=== PATIENT | male | born 1970 | race American Indian/Alaskan Native ===

== ENCOUNTER 2021-01-04 08:12 | Inpatient (IN) | payer OTHER ==
[~2021-01-04 08:12] MED LIST: CALCIUM CHLORIDE 1,000 MG/10 ML SYRINGE IV ONE; DEXTROSE 50% IN WATER (25GM) 50 ML SYRINGE IV ONE; EPINEPHrine 1 MG/10 ML SYRINGE ONE; ONDANSETRON 8 MG in SODIUM CHLORIDE 0.9% 50 ML IV NR; PANTOPRAZOLE 80 MG in SODIUM CHLORIDE 0.9% 100 ML IV NR; SODIUM BICARB 8.4% 50 MEQ/50 ML SYRINGE IV ONE
[2021-01-04] MEDS ORDERED: SODIUM CHLORIDE 0.9% 1000 ML 1,000 ML IV ONE ×2 (08:19→10:06)
[2021-01-04] MEDS ORDERED: OCTREOTIDE 500 MCG in SODIUM CHLORIDE 0.9% 100 ML IV ONE (08:21)
[2021-01-04] MEDS ORDERED: PANTOPRAZOLE 40 MG INJ IV ONE (08:21)
[2021-01-04] MEDS ORDERED: ONDANSETRON 4 MG/2 ML INJ IV ONE (08:22)
--- NOTE | 2021-01-04 08:26 | Emergency Department Report ---
ED GI Bleed HPI - General Stated complaint: GI BLEED Time Seen by Provider: 01/04/21 08:18 Source: patient, EMS Mode of arrival: Stretcher - History of Present Illness Initial comments: 50-year-old male with a past medical history of alcohol abuse and cryptogenic cirrhosis presents to the hospital with gross hematemesis. EMS was called by patient's who found him on the living room floor with a lot of bloody vomitus. Patient states he called out to her and did not fall. Patient was conscious upon EMS arrival. Patient has several episodes of vomiting blood in route to the hospital and upon arrival to the ED and was in and out of consciousness as per EMS. No signs of hypotension in route to the hospital. No previous medical record available for review. I greeted EMS at the door prior t o triage and initiated treatment orders. Patient presents with a 18-gauge IV. Requested second line placement. Patient states he started vomiting a little bit of blood yesterday which worsened today. He states he is not actively drinking alcohol and has a beer on occasion. states he drinks alcohol daily has history of alcohol withdrawal tremors. She is a RN PALLIATIVE CARE. he states he has not alcoholic liver cirrhosis. Denies previous history of GI bleed or recent melena. He is a [facility] patient. - Related Data Allergies Allergy/AdvReac Type Severity Reaction Status Date / Time Sulfa (Sulfonamide Allergy Unknown Verified 01/04/21 08:34 Antibiotics) ED Review of Systems ROS: Stated complaint: GI BLEED Other details as noted in HPI Comment: All other systems reviewed and negative ED Past Medical Hx - Past Medical History Hx Liver Disease: Yes (Cryptogenic cirrhosis) - Social History Substance Use Type: Alcohol (Alcoholic) ED Physical Exam - Other Other exam information: General: No acute distress Head: Atraumatic, no hematoma Eyes: Jaundice ENT: Blood in oral area Neck: Normal appearance, no midline tenderness Chest: Clear to auscultation bilaterally CV: Regular rate and rhythm Abdomen: Soft, normal bowel sounds, nontender, nondistended, no rebound or guarding. Reducible umbilical hernia. Actively vomiting blood intermittently while in the ED Back: Normal inspection Extremity: Right leg edema compared, right knee surgical scar Neuro: Alert O x 3, no facial asymmetry, speech clear, no gross motor sensory deficit Psych: Appropriate behavior Skin: No rash ED Course Vital Signs 09/01/04/21 01/04/21 08:30 08:34 08:45 Temperature 93.9 F L Pulse Rate 81 91 H 80 Respiratory 20 14 10 L Rate Blood Pressure 60/40 81/42 O2 Sat by Pulse 100 100 99 Oximetry 01/04/21 01/04/21 01/04/21 09:31 09:45 10:00 Temperature Pulse Rate 77 79 78 Respiratory 17 13 11 L Rate Blood Pressure 73/40 76/39 71/47 O2 Sat by Pulse 100 100 99 Oximetry 01/04/21 01/04/21 01/04/21 10:15 10:31 10:45 Temperature Pulse Rate 74 101 H 115 H Respiratory 10 L 14 13 Rate Blood Pressure 70/39 80/42 81/45 O2 Sat by Pulse 98 98 Oximetry 01/04/21 01/04/21 01/04/21 11:00 11:15 11:30 Temperature Pulse Rate 101 H 106 H 119 H Respiratory 12 13 18 Rate Blood Pressure 79/30 80/35 100/56 O2 Sat by Pulse 98 100 100 Oximetry 01/04/21 01/04/21 01/04/21 11:45 12:00 12:15 Temperature Pulse Rate 123 H 124 H 120 H Respiratory 19 20 13 Rate Blood Pressure 90/49 74/45 78/43 O2 Sat by Pulse 91 Oximetry 01/04/21 01/04/21 01/04/21 12:30 12:45 13:00 Temperature Pulse Rate 120 H 119 H 117 H Respiratory 14 15 11 L Rate Blood Pressure 79/47 81/46 98/56 O2 Sat by Pulse 100 Oximetry 01/04/21 01/04/21 01/04/21 13:10 13:15 13:27 Temperature Pulse Rate 119 H 121 H Respiratory 21 17 Rate Blood Pressure 82/53 81/45 O2 Sat by Pulse 100 100 100 Oximetry 01/04/21 01/04/21 01/04/21 13:30 13:45 14:00 Temperature Pulse Rate 123 H 117 H 117 H Respiratory 19 12 10 L Rate Blood Pressure 83/52 72/48 70/37 O2 Sat by Pulse Oximetry 01/04/21 01/04/21 01/04/21 14:04 14:15 14:30 Temperature 96.1 F L Pulse Rate 118 H 121 H Respiratory 9 L 12 Rate Blood Pressure 68/42 81/47 O2 Sat by Pulse 100 100 Oximetry 01/04/21 01/04/21 01/04/21 14:45 14:59 15:00 Temperature Pulse Rate 127 H 127 H Respiratory 11 L 12 Rate Blood Pressure 82/51 86/48 O2 Sat by Pulse 100 100 Oximetry 01/04/21 01/04/21 01/04/21 15:15 15:30 15:45 Temperature Pulse Rate 128 H 126 H 127 H Respiratory 13 11 L 13 Rate Blood Pressure 78/51 85/48 75/39 O2 Sat by Pulse 100 100 94 Oximetry 01/04/21 01/04/21 01/04/21 16:00 16:15 16:30 Temperature Pulse Rate 131 H 131 H 132 H Respiratory 11 L 14 17 Rate Blood Pressure 90/57 122/61 112/55 O2 Sat by Pulse 100 100 100 Oximetry 01/04/21 01/04/21 01/04/21 16:45 17:00 17:15 Temperature Pulse Rate 133 H 133 H 133 H Respiratory 13 11 L 11 L Rate Blood Pressure 90/53 106/51 99/50 O2 Sat by Pulse 100 100 100 Oximetry 01/04/21 01/04/21 01/04/21 17:30 17:45 18:00 Temperature 100.9 F H Pulse Rate 125 H 132 H 132 H Respiratory 11 L 9 L 10 L Rate Blood Pressure 77/40 82/44 78/39 O2 Sat by Pulse 87 100 96 Oximetry 01/04/21 01/04/21 01/04/21 18:15 18:30 18:45 Temperature Pulse Rate 132 H 132 H 129 H Respiratory 9 L 8 L 9 L Rate Blood Pressure 67/41 71/38 62/35 O2 Sat by Pulse 100 96 Oximetry 01/04/21 01/04/21 01/04/21 19:00 19:15 19:23 Temperature Pulse Rate 127 H 127 H Respiratory 9 L 9 L Rate Blood Pressure 64/37 63/37 O2 Sat by Pulse 98 100 98 Oximetry 01/04/21 01/04/21 01/04/21 19:30 19:45 20:00 Temperature Pulse Rate 126 H 125 H 125 H Respiratory 10 L 11 L 12 Rate Blood Pressure 63/33 76/35 79/35 O2 Sat by Pulse 100 92 100 Oximetry 01/04/21 01/04/21 01/04/21 20:15 20:30 20:45 Temperature Pulse Rate 123 H 122 H 110 H Respiratory 12 11 L 10 L Rate Blood Pressure 71/38 71/38 57/31 O2 Sat by Pulse 100 100 Oximetry 01/04/21 01/04/21 01/04/21 20:55 21:00 21:15 Temperature Pulse Rate 108 H 108 H 110 H Respiratory 9 L Rate Blood Pressure 55/27 59/21 60/30 O2 Sat by Pulse 98 100 99 Oximetry 01/04/21 01/04/21 01/04/21 21:30 21:45 22:00 Temperature Pulse Rate 110 H 110 H 110 H Respiratory 10 L 8 L 17 Rate Blood Pressure 56/29 57/39 50/19 O2 Sat by Pulse 100 98 94 Oximetry 01/04/21 01/04/21 01/04/21 22:15 22:22 22:23 Temperature 99.7 F H Pulse Rate 106 H 106 H Respiratory 7 L 12 Rate Blood Pressure 62/29 54/31 O2 Sat by Pulse Oximetry 01/04/21 01/04/21 01/04/21 22:30 22:45 23:00 Temperature Pulse Rate 106 H 103 H 102 H Respiratory 25 H 26 H 27 H Rate Blood Pressure 65/32 55/31 65/32 O2 Sat by Pulse 98 Oximetry 01/04/21 01/04/21 01/04/21 23:15 23:30 23:45 Temperature Pulse Rate 98 H 91 H 84 Respiratory 28 H 27 H 23 Rate Blood Pressure 67/28 57/28 54/25 O2 Sat by Pulse 97 98 98 Oximetry 01/05/21 01/05/21 01/05/21 00:00 00:15 00:30 Temperature Pulse Rate 84 83 85 Respiratory 13 21 16 Rate Blood Pressure 54/26 57/25 55/22 O2 Sat by Pulse 98 99 97 Oximetry 01/05/21 01/05/21 01/05/21 00:45 01:01 01:15 Temperature Pulse Rate 83 81 81 Respiratory 9 L 10 L 10 L Rate Blood Pressure 60/22 54/19 55/28 O2 Sat by Pulse 100 99 99 Oximetry 01/05/21 01:31 Temperature Pulse Rate 77 Respiratory 10 L Rate Blood Pressure 53/22 O2 Sat by Pulse 97 Oximetry - Reevaluation(s) Reevaluation #1: 01/04/21 08:29 Once patient placed in a blood pressure he is noted to be hypotensive with a systolic pressure in his 70s. Emergency release blood requested. NS bolus. phlebtomy at the bedside 01/04/21 09:17 I called lab for platelet count given history of significant thrombocytopenia. I was told by energy systems laboratory director that tentative platelet count is 71 however, must be verified to be a slide prior to release. Reevaluation #2: 01/04/21 09:32 at the bedside and clarified history of present illness. She and the christofer ent were informed of the severity of his presentation, need for blood and possible blood products, and need for emergent transfer due to lack of endoscopy services here at this hospital. There was informed that waiting to hear back from [facility] physician regarding ICU placement and transfer 01/04/21 09:37 Patient is currently alert and oriented. Remains hypotensive. Call placed to the respiratory therapist to prep room for intubation in case patient decompensates. Call placed to blood bank for stat fresh frozen plasma. pt hypothermic and active warmer initiated 01/04/21 12:34 Reevaluation #3: 01/04/21 10:58 . I was informed by nurse that patient is hypothermic. Lily warmer place. Patient actively vomiting blood and appears tremulous likely secondary to a lcohol withdrawal. Patient on 20 mics of dopamine and remains hypotensive despite aggressive resuscitation measures. Given continued instability and continue vomiting blood patient will be prepped for intubation and central line placement - Consultations Consultation #1: 01/04/21 08:41 Gi called for emergency consult. 01/04/21 09:05 case d/w DR Rodriguez, no endoscopy available, rec transfer 01/04/21 09:05 [facility] transfer service called 01/04/21 09:16 Case discussed with [facility] MD Dr. Holden. She reviewed medical record. Patient has chronic thrombocytopenia with platelet count often being too low to be reported. Based on September and July blood work. Last colonoscopy was in 2008. No history of EGD. In September patient was admitted for sepsis and bacteremia and needed to have right femur hardware removal. There was some discussion regarding palliative care however, patient does not currently have advanced directives on file. She recommended admission here due to instability however, she was informed t\hat we do not have endoscopy services. She states she will verify availability ICU beds and call back regarding acceptance of transfer 01/04/21 10:[address] Holden, informed of need for dopamine, plt 71 (but pending conformation), and coaagulopathy. Recommends initiated platelet. Awaiting callback from ICU attending to verify acceptance and space availability 01/04/21 11:[address] Holden patient current diagnosis is cryptogenic cirrhosis (apr 2017 initial diagnois after admission with septic arthritis, biposy consitant with non alcholic), September egd: no varices but positive for gastritis (performed during the admission for hardware removal). Unfortunately they do not have any ICU beds at any facility. If we can not find a bed call back to place pt on waiting list 01/04/21 11:43 11:30a nurse supervisor [facility] and Juliana aware of patient's emergent condition requiring emergent endoscopy and unavailability of endoscopy here. Will attempt to find a solution 01/04/21 11:50 case d/w DR Rodriguez, states that he currently lacks a nurse, tech and access to endoscopy. advices ngt, ct angio if stable further possible clarification of source of bleeding 01/04/21 `11:[address] Holden that Pt does not have hx of liver cancer. no active liver treatment currently 01/04/21 12:12 Case discussed with [facility]. No bed available 01/04/21 12:15 No beds at [facility] 01/04/21 12:18 I was informed by charge operator that child that has arranged for team to come in to perform emergent endoscopy. Dr. Rodriguez informed. Hospitalist informed for admission 01/04/21 13:43 01/04/21 14:[address] [facility] Dr. Holden informed improved H&H, endoscopy results and banding procedure, and that patient is now on 3 pressors with and remains critical with ABG showing metabolic acidosis. She will continue to have patient on the list for ICU bed transfer to [facility] - Central Line Placement Right Femoral Consent Obtained: verbal consent, emergent situation Time Out Performed: Yes Patient Placed on Monitor/Pulse Ox: Yes MD Prep: mask, gown, gloves Central Line Prep: Chlorhexidine scrub Ultrasound Used for Placement: No Central Line Lumen Inserted: triple Reason for Insertion: Volume Resuscitation Bloods Obtained for Lab: No Central Line Position: good blood return, sutured in place with nyl Dressing Applied: Tegaderm Patient Tolerated Procedure: well Complications: none - Intubation Time Out Performed: Yes Sedative: Etomidate Mg Given: 20 Paralytic: Succinylcholine Mg Given: 100 Laryngoscope: fiberoptic video scope Size: 4 ET Tube Size: 7.5 Tube Secured Depth (cm): 24 Tube Secured Location: lips Tube Placement Confirmation: visualized tube passing t, equal breath sounds bilat, no breath sounds over epi, confirmation by capnometr Patient Tolerated Procedure: well Intubation Complications: none ED Medical Decision Making - Lab Data Result diagrams: 01/05/21 02:17 01/05/21 02:17 Lab Results 01/04/21 01/04/21 01/04/21 Range/Units 08:55 08:55 08:55 WBC 4.6 (4.5-11.0) K/mm3 RBC 2.15 L (3.65-5.03) M/mm3 Hgb 8.4 L (11.8-15.2) gm/dl Hct 24.3 L (35.5-45.6) % MCV 113 H (84-94) fl MCH 39 H (28-32) pg MCHC 35 H (32-34) % RDW 24.9 H (13.2-15.2) % Plt Count 71 L (140-440) K/mm3 [place] % (Auto) Payroll And Benefits Assistant Add Manual Diff Complete Total Counted 100 Seg Neuts % (Manual) 76.0 H (40.0-70.0) % Band Neutrophils % 1.0 % Lymphocytes % (Manual) 22.0 (13.4-35.0) % Monocytes % (Manual) 1.0 (0.0-7.3) % Nucleated RBC % Not Reportable Seg Neutrophils # Man 3.5 (1.8-7.7) K/mm3 Band Neutrophils # 0.0 K/mm3 Lymphocytes # (Manual) 1.0 L (1.2-5.4) K/mm3 Abs React Lymphs (Man) 0.0 K/mm3 Monocytes # (Manual) 0.0 (0.0-0.8) K/mm3 Eosinophils # (Manual) 0.0 (0.0-0.4) K/mm3 Basophils # (Manual) 0.0 (0.0-0.1) K/mm3 Metamyelocytes # 0.0 K/mm3 Myelocytes # 0.0 K/mm3 Promyelocytes # 0.0 K/mm3 Blast Cells # 0.0 K/mm3 WBC Morphology Not Reportable Hypersegmented Neuts Not Reportable Hyposegmented Neuts Not Reportable Hypogranular Neuts Not Reportable Smudge Cells Not Reportable Toxic Granulation Not Reportable Toxic Vacuolation Not Reportable Dohle Bodies Not Reportable Pelger-Huet Anomaly Not Reportable Aneesh Rods Not Reportable Platelet Estimate Consistent w auto Clumped Platelets Not Reportable Plt Clumps, EDTA Not Reportable Large Platelets Not Reportable Giant Platelets Not Reportable Platelet Satelliting Not Reportable Plt Morphology Comment Not Reportable RBC Morphology Not Reportable Dimorphic RBCs Not Reportable Polychromasia Not Reportable Hypochromasia 1+ Poikilocytosis Not Reportable Anisocytosis 2+ Microcytosis Not Reportable Macrocytosis 1+ Spherocytes Not Reportable Pappenheimer Bodies Not Reportable Sickle Cells Not Reportable Target Cells Few Tear Drop Cells Not Reportable Ovalocytes Not Reportable Helmet Cells Not Reportable [place] Bodies Not Reportable Thomas Rings Not Reportable [place] Cells Not Reportable Bite Cells Not Reportable Crenated Cell Not Reportable Elliptocytes Not Reportable Acanthocytes (Spur) Not Reportable Rouleaux Not Reportable Hemoglobin C Crystals Not Reportable Schistocytes Not Reportable Malaria parasites Not Reportable Jerrod Bodies Not Reportable Hem Pathologist Commnt No PT 33.7 H (12.2-14.9) Sec. INR 3.31 H (0.87-1.13) APTT 62.1 H* (24.2-36.6) Sec. ABG pH (7.350-7.450) pH Units ABG pCO2 mm Hg ABG pO2 (80.0-90.0) mm Hg ABG HCO3 (20.0-26.0) mmol/L ABG O2 Saturation (95.0-99.0) % ABG O2 Content (0.0-44) ABG Base Excess (-2.0-3.0) mmol/L ABG Hemoglobin (14.0-18.0) gm/dl ABG Carboxyhemoglobin (0.0-5.0) % ABG Methemoglobin (0.0-1.5) % Oxyhemoglobin (95.0-99.0) % FiO2 % Sodium 134 L (137-145) mmol/L Potassium 3.4 L (3.6-5.0) mmol/L Chloride 97.7 L (98-107) mmol/L Carbon Dioxide 21 L (22-30) mmol/L Anion Gap 19 mmol/L BUN 20 (9-20) mg/dL Creatinine 1.2 (0.8-1.3) mg/dL Estimated GFR > 60 ml/min BUN/Creatinine Ratio 17 % Glucose 140 H (75-100) mg/dL Calcium 7.6 L (8.4-10.2) mg/dL Magnesium 2.10 (1.7-2.3) mg/dL Total Bilirubin 25.10 H (0.1-1.2) mg/dL AST 191 H (5-40) units/L ALT 37 (7-56) units/L Alkaline Phosphatase 175 H (35-129) units/L Total Protein 5.5 L (6.3-8.2) g/dL Albumin 1.9 L (3.9-5) g/dL Albumin/Globulin Ratio 0.5 % Lipase (13-60) units/L Plasma/Serum Alcohol (0-0.07) % Blood Type Antibody Screen Crossmatch 01/04/21 01/04/21 01/04/21 Range/Units 08:55 08:55 08:55 WBC (4.5-11.0) K/mm3 RBC (3.65-5.03) M/mm3 Hgb (11.8-15.2) gm/dl Hct (35.5-45.6) % MCV (84-94) fl MCH (28-32) pg MCHC (32-34) % RDW (13.2-15.2) % Plt Count (140-440) K/mm3 [place] % (Auto) Add Manual Diff Total Counted Seg Neuts % (Manual) (40.0-70.0) % Band Neutrophils % % Lymphocytes % (Manual) (13.4-35.0) % Monocytes % (Manual) (0.0-7.3) % Nucleated RBC % Seg Neutrophils # Man (1.8-7.7) K/mm3 Band Neutrophils # K/mm3 Lymphocytes # (Manual) (1.2-5.4) K/mm3 Abs React Lymphs (Man) K/mm3 Monocytes # (Manual) (0.0-0.8) K/mm3 Eosinophils # (Manual) (0.0-0.4) K/mm3 Basophils # (Manual) (0.0-0.1) K/mm3 Metamyelocytes # K/mm3 Myelocytes # K/mm3 Promyelocytes # K/mm3 Blast Cells # K/mm3 WBC Morphology Hypersegmented Neuts Hyposegmented Neuts Hypogranular Neuts Smudge Cells Toxic Granulation Toxic Vacuolation Dohle Bodies Pelger-Huet Anomaly Aneesh Rods Platelet Estimate Clumped Platelets Plt Clumps, EDTA Large Platelets Giant Platelets Platelet Satelliting Plt Morphology Comment RBC Morphology Dimorphic RBCs Polychromasia Hypochromasia Poikilocytosis Anisocytosis Microcytosis Macrocytosis Spherocytes Pappenheimer Bodies Sickle Cells Target Cells Tear Drop Cells Ovalocytes Helmet Cells [place] Bodies Thomas Rings [place] Cells Bite Cells Crenated Cell Elliptocytes Acanthocytes (Spur) Rouleaux Hemoglobin C Crystals Schistocytes Malaria parasites Jerord Bodies Hem Pathologist Commnt PT (12.2-14.9) Sec. INR (0.87-1.13) APTT (24.2-36.6) Sec. ABG pH (7.350-7.450) pH Units ABG pCO2 mm Hg ABG pO2 (80.0-90.0) mm Hg ABG HCO3 (20.0-26.0) mmol/L ABG O2 Saturation (95.0-99.0) % ABG O2 Content (0.0-44) ABG Base Excess (-2.0-3.0) mmol/L ABG Hemoglobin (14.0-18.0) gm/dl ABG Carboxyhemoglobin (0.0-5.0) % ABG Methemoglobin (0.0-1.5) % Oxyhemoglobin (95.0-99.0) % FiO2 % Sodium (137-145) mmol/L Potassium (3.6-5.0) mmol/L Chloride (98-107) mmol/L Carbon Dioxide (22-30) mmol/L Anion Gap mmol/L BUN (9-20) mg/dL Creatinine (0.8-1.3) mg/dL Estimated GFR ml/min BUN/Creatinine Ratio % Glucose (75-100) mg/dL Calcium (8.4-10.2) mg/dL Magnesium (1.7-2.3) mg/dL Total Bilirubin (0.1-1.2) mg/dL AST (5-40) units/L ALT (7-56) units/L Alkaline Phosphatase (35-129) units/L Total Protein (6.3-8.2) g/dL Albumin (3.9-5) g/dL Albumin/Globulin Ratio % Lipase 61 H (13-60) units/L Plasma/Serum Alcohol 0.13 H (0-0.07) % Blood Type A POSITIVE Antibody Screen Negative Crossmatch See Detail 01/04/21 01/04/21 Range/Units 12:44 13:22 WBC (4.5-11.0) K/mm3 RBC (3.65-5.03) M/mm3 Hgb 9.6 L (11.8-15.2) gm/dl Hct 30.2 L (35.5-45.6) % MCV (84-94) fl MCH (28-32) pg MCHC (32-34) % RDW (13.2-15.2) % Plt Count (140-440) K/mm3 [place] % (Auto) Add Manual Diff Total Counted Seg Neuts % (Manual) (40.0-70.0) % Band Neutrophils % % Lymphocytes % (Manual) (13.4-35.0) % Monocytes % (Manual) (0.0-7.3) % Nucleated RBC % Seg Neutrophils # Man (1.8-7.7) K/mm3 Band Neutrophils # K/mm3 Lymphocytes # (Manual) (1.2-5.4) K/mm3 Abs React Lymphs (Man) K/mm3 Monocytes # (Manual) (0.0-0.8) K/mm3 Eosinophils # (Manual) (0.0-0.4) K/mm3 Basophils # (Manual) (0.0-0.1) K/mm3 Metamyelocytes # K/mm3 Myelocytes # K/mm3 Promyelocytes # K/mm3 Blast Cells # K/mm3 WBC Morphology Hypersegmented Neuts Hyposegmented Neuts Hypogranular Neuts Smudge Cells Toxic Granulation Toxic Vacuolation Dohle Bodies Pelger-Huet Anomaly Aneesh Rods Platelet Estimate Clumped Platelets Plt Clumps, EDTA Large Platelets Giant Platelets Platelet Satelliting Plt Morphology Comment RBC Morphology Dimorphic RBCs Polychromasia Hypochromasia Poikilocytosis Anisocytosis Microcytosis Macrocytosis Spherocytes Pappenheimer Bodies Sickle Cells Target Cells Tear Drop Cells Ovalocytes Helmet Cells [place] Bodies Thomas Rings [place] Cells Bite Cells Crenated Cell Elliptocytes Acanthocytes (Spur) Rouleaux Hemoglobin C Crystals Schistocytes Malaria parasites Jerrod Bodies Hem Pathologist Commnt PT (12.2-14.9) Sec. INR (0.87-1.13) APTT (24.2-36.6) Sec. ABG pH 7.218 L (7.350-7.450) pH Units ABG pCO2 29.0 mm Hg ABG pO2 256.5 H (80.0-90.0) mm Hg ABG HCO3 11.6 L (20.0-26.0) mmol/L ABG O2 Saturation 99.4 H (95.0-99.0) % ABG O2 Content 9.6 (0.0-44) ABG Base Excess -14.8 L (-2.0-3.0) mmol/L ABG Hemoglobin 6.5 L (14.0-18.0) gm/dl ABG Carboxyhemoglobin 2.2 (0.0-5.0) % ABG Methemoglobin 0.5 (0.0-1.5) % Oxyhemoglobin 96.7 (95.0-99.0) % FiO2 60 % Sodium (137-145) mmol/L Potassium (3.6-5.0) mmol/L Chloride (98-107) mmol/L Carbon Dioxide (22-30) mmol/L Anion Gap mmol/L BUN (9-20) mg/dL Creatinine (0.8-1.3) mg/dL Estimated GFR ml/min BUN/Creatinine Ratio % Glucose (75-100) mg/dL Calcium (8.4-10.2) mg/dL Magnesium (1.7-2.3) mg/dL Total Bilirubin (0.1-1.2) mg/dL AST (5-40) units/L ALT (7-56) units/L Alkaline Phosphatase (35-129) units/L Total Protein (6.3-8.2) g/dL Albumin (3.9-5) g/dL Albumin/Globulin Ratio % Lipase (13-60) units/L Plasma/Serum Alcohol (0-0.07) % Blood Type Antibody Screen Crossmatch - EKG Data -: EKG Interpreted by [place] EKG shows normal: sinus rhythm, intervals (QTC 525), ST-T waves (No STEMI) Rate: normal (86) - Radiology Data Radiology results: report reviewed CHEST 1 VIEW INDICATION: vomiting blood. COMPARISON: None FINDINGS: SUPPORT DEVICES: None. HEART: Within normal limits. LUNGS/PLEURA: No acute air space or interstitial disease. ADDITIONAL FINDINGS: None. IMPRESSION: 1. No acute findings. CHEST 1 VIEW INDICATION: ETT placement. COMPARISON: Earlier today FINDINGS: SUPPORT DEVICES: Endotracheal tube placement with tip along the inferior clavicle margin. HEART: Within normal limits. LUNGS/PLEURA: Minimal hazy right greater than left basilar airspace opacities. No effusion or pneumothorax. ADDITIONAL FINDINGS: None. IMPRESSION: 1. Endotracheal tube placement in satisfactory position. 2. Lung findings as above. - Medical Decision Making 50-year-old alcoholic male with a past medical history of cryptogenic cirrhosis presents to the hospital with complaints of acute upper GI bleed. Patient required immediate resuscitation upon arrival with normal saline and emergency release of blood. Despite receiving 3 L of normal saline and 2 units of blood patient may significantly hypertensive and hypothermic with continued vomiting of blood. Patient treated with Protonix drip and bolus, and octreotide drip and bolus. Vasopressors initiated. Active warming initially. Patient maxed out on dopamine. Levophed initiated. Patient intubated for airway protection and also for stability and central line placed. Unfortunately there were no available beds at [facility] therefore an emergent staff was called in to perform endoscopy at the bedside for endoscopy revealed esophageal varices with active bleeding. 4 bands placed as per GI note. Hospitalist to admit. Critical care attending consulted. intermittently at the bedside. Patient has a very poor prognosis and required a third vasopressor shortly after intubation. Damion FORREST updated regarding status and patient placed on list for transfer when bed available. Patient required extensive monitoring, reassessment, consultations, and treatment interventions during ED stay 75 minutes of critical care time documented. Critical Care Time: Yes Critical care time in (mins) excluding proc time.: 75 Critical care attestation.: If time is entered above; I have spent that time in minutes in the direct care of this critically ill patient, excluding procedure time. ED Disposition Clinical Impression: Upper GI bleed, Hypotension, Anemia, Thrombocytopenia, Coagulopathy, Alcohol abuse, Hypothermia Esophageal varices Qualifiers: Esophageal varices bleeding: with bleeding Disposition: 09 ADMITTED INPATIENT Is pt being admited?: Yes Condition: Critical
[2021-01-04] MEDS ORDERED: OCTREOTIDE 50 MCG/1 ML INJ IV ONE (08:30)
[2021-01-04] MEDS ORDERED: PANTOPRAZOLE 80 MG in SODIUM CHLORIDE 0.9% 100 ML IV SCH (09:00)
[2021-01-04 09:02] LABS: Hematocrit 24.3 % (35.5-45.6); Hemoglobin 8.4 gm/dl (11.8-15.2); Mean Corpuscular HGB Conc 35 % (32-34); Red Blood Count 2.15 M/mm3 (3.65-5.03)
[2021-01-04 09:09] LABS: Mean Corpuscular Volume 113 fl (84-94); Red Cell Distribution Width 24.9 % (13.2-15.2)
[2021-01-04 09:17] LABS: Alanine Aminotransferase 37 units/L (7-56); Albumin 1.9 g/dL (3.9-5); BUN/Creatinine Ratio 17; Blood Urea Nitrogen 20 mg/dL (9-20); Calcium 7.6 mg/dL (8.4-10.2); Hemolysis Index 29; INR 3.31 (0.87-1.13)
--- NOTE | 2021-01-04 09:26 | XRay Report ---
CHEST 1 VIEW INDICATION: vomiting blood. COMPARISON: None FINDINGS: SUPPORT DEVICES: None. HEART: Within normal limits. LUNGS/PLEURA: No acute air space or interstitial disease. ADDITIONAL FINDINGS: None. IMPRESSION: 1. No acute findings. Signer Name: Flako Mansfield MD Signed: 01/04/2021 9:21 AM Workstation Name: [id number]
[2021-01-04] MEDS ORDERED: SODIUM CHLORIDE 0.9% 500 ML 500 ML IV ONE ×2 (09:34→10:20)
[2021-01-04 10:31] LABS: Partial Thromboplastin Time 62.1 Sec. (24.2-36.6)
[2021-01-04] MEDS: DOPamine/D5W 800 MG/250 ML 800 MG/250 ML BAG IV ONE (11:00)
[2021-01-04] MEDS ORDERED: KETAMINE 500 MG/5 ML VIAL MDV ONE (11:15)
[2021-01-04] MEDS ORDERED: MIDAZOLAM 2 MG/2 ML INJ IV PRN (11:49)
[2021-01-04] MEDS ORDERED: LIP THERAPY VASELINE TP PRN (11:49)
[2021-01-04] MEDS ORDERED: MINERAL OIL/PETROLATUM, WHITE OPHTH OINT 3.5 GM OU PRN (11:49)
[2021-01-04] MEDS ORDERED: fentaNYL 100 MCG/2 ML INJ IV PRN (11:49)
[2021-01-04] MEDS ORDERED: MIDAZOLAM 100 MG in SODIUM CHLORIDE 0.9% 80 ML IV SCH (12:00)
[2021-01-04] MEDS ORDERED: fentaNYL DRIP Premix 2,000 MCG/100 ML BAG IV SCH (12:00)
[2021-01-04 12:10] LABS: Hypochromasia 1+; Platelet Estimate Consistent w Auto; Target Cells Few; Total Cells Counted 100
[2021-01-04 12:11] LABS: Anisocytosis 2+; Macrocytosis 1+
[2021-01-04 12:16] LABS: Platelet Count 71 K/mm3 (140-440)
--- NOTE | 2021-01-04 12:31 | XRay Report ---
CHEST 1 VIEW INDICATION: ETT placement. COMPARISON: Earlier today FINDINGS: SUPPORT DEVICES: Endotracheal tube placement with tip along the inferior clavicle margin. HEART: Within normal limits. LUNGS/PLEURA: Minimal hazy right greater than left basilar airspace opacities. No effusion or pneumot horax. ADDITIONAL FINDINGS: None. IMPRESSION: 1. Endotracheal tube placement in satisfactory position. 2. Lung findings as above. Signer Name: Flako Mansfield MD Signed: 01/04/2021 12:27 PM Workstation Name: [id number]
--- NOTE | 2021-01-04 12:34 | History and Physical Report ---
History of Present Illness Chief complaint: He is throwing up blood History of present illness: 50 YO Male with ETOH Dependence, Cirrhosis complicated by Esophageal Varices, ETOH Withdrawl Syndrome who is not a candidate for liver transplant due to continued alcohol dependence presents ED for evaluation. Patient is intubated and on ventilatory support at the time my evaluation and is unable to provide history. Patient history provided by EMS staff, ED staff, as well as the patient who is at bedside during exam and interview. As per the patient was found down and unresponsive in the living room and lying in a pool of bloody vomitus. EMS was notified and upon arrival the patient was found to be in and out of consciousness and was subsequent transported to [facility] for further care and evaluation of the aforementioned symptoms. In route to the hospital the patient was found to have multiple episodes of hematemesis. Upon arrival to the emergency department the patient was found to be in distress and unable to protect his airway. The patient was also intoxicated. The patient was intubated due to acute hypoxemic respiratory failure. The patient was also found to have septic shock complicated by GI bleed and blood loss anemia. The patient was initiated on sepsis protocol and admitted to ICU due to increased risk of worsening symptoms. Patient found to have a poor prognosis. GI team consulted in the ED and the patient underwent emergent endoscopy and initiated on GI Bleed protocol. Critical care team consulted. No reports of fever, chills, chest pain, palpitation, adductive cough, skin rash, recent ill contacts, or known exposure to COVID-19. No prior admission for review. No m edication listed at time of admission for reconciliation. Advanced care planning conducted in ED. Past History Past Medical History: other (See HPI) Past Surgical History: No surgical history, Other (Reviewed) Social history: , lives with family Medications and Allergies Allergies Allergy/AdvReac Type Severity Reaction Status Date / Time Sulfa (Sulfonamide Allergy Unknown Verified 01/04/21 08:34 Antibiotics) Active Meds: Active Medications Famotidine (Famotidine 20 Mg/2 Ml Inj) 20 mg IV BID CORTNEY Fentanyl (Fentanyl 100 Mcg/2 Ml Inj) 50 mcg IV Q10MIN PRN PRN Reason: ANALGESIA Hydrophilic Ointment (Lip Therapy Vaseline) 1 applic TP Q2HR PRN PRN Reason: Dry Lips Pantoprazole Sodium 80 mg/ (Sodium Chloride) 100 mls @ 10 mls/hr IV DIRECT CORTNEY Octreotide Acetate 500 mcg/ (Sodium Chloride) 101 mls @ 5.05 mls/hr IV TITR ONE; Protocol Stop: 01/05/21 04:20 Last Admin: 01/04/21 09:50 Dose: 25 mcg/hr, 5.05 mls/hr Documented by: Dopamine HCl/Dextrose (Intropin Drip 800 Mg/D5w 250 Ml) 800 mg in 250 mls @ 3.487 mls/hr IV TITR ONE; Protocol Stop: 01/07/21 09:47 Fentanyl Citrate (Fentanyl Drip Premix) 2,000 mcg in 100 mls @ 4.649 mls/hr IV TITR CORTNEY; Protocol Midazolam HCl 100 mg/ Sodium (Chloride) 100 mls @ 2 mls/hr IV TITR CORTNEY; Protocol Midazolam HCl (Midazolam 2 Mg/2 Ml Inj) 2 mg IV Q10MIN PRN PRN Reason: Sedation Multi-Ingred Cream/Lotion/Oil/Oint (Mineral Oil/Petrolatum, White Ophth Oint 3.5 Gm) 1 applic OU Q4HR PRN PRN Reason: Dry Eye(s) Senna/Docusate Sodium (Sennosides/Docusate Sodium 8.6/50 Mg Tab) 1 tab FEEDTUBE BID CORTNEY Review of Systems ROS unobtainable: due to endotracheal tube, due to mental status Exam - Constitutional Vitals: Temp Pulse Resp BP Pulse Ox 79 13 76/39 100 01/04/21 09:45 01/04/21 09:45 01/04/21 09:45 01/04/21 11:30 General appearance: Present: severe distress - EENT Eyes: Present: miosis ENT: hearing decreased - Neck Neck: Present: supple, normal ROM - Respiratory Respiratory effort: normal Respiratory: bilateral: diminished - Cardiovascular Heart Sounds: Present: S1 & S2. Absent: rub, click - Extremities Extremities: pulses symmetrical, No edema Peripheral Pulses: within normal limits - Abdominal General gastrointestinal: Present: soft, non-tender, non-distended, normal bowel sounds Male genitourinary: Present: normal - Integumentary Integumentary: Present: dry, clammy, decreased turgor - Musculoskeletal Musculoskeletal: generalized weakness - Psychiatric Psychiatric: no appropriate mood/affect, no intact judgment & insight, no memory intact - Neurologic Neurologic: CNII-XII intact, no focal deficits, moves all extremities, no gait normal Results - Labs CBC & Chem 7: 01/04/21 12:44 01/04/21 08:55 Labs: Abnormal lab results 01/04/21 01/04/21 01/04/21 Range/Units 08:55 08:55 08:55 RBC 2.15 L (3.65-5.03) M/mm3 Hgb 8.4 L (11.8-15.2) gm/dl Hct 24.3 L (35.5-45.6) % MCV 113 H (84-94) fl MCH 39 H (28-32) pg MCHC 35 H (32-34) % RDW 24.9 H (13.2-15.2) % Plt Count 71 L (140-440) K/mm3 Seg Neuts % (Manual) 76.0 H (40.0-70.0) % Lymphocytes # (Manual) 1.0 L (1.2-5.4) K/mm3 PT 33.7 H (12.2-14.9) Sec. INR 3.31 H (0.87-1.13) APTT 62.1 H* (24.2-36.6) Sec. Sodium 134 L (137-145) mmol/L Potassium 3.4 L (3.6-5.0) mmol/L Chloride 97.7 L (98-107) mmol/L Carbon Dioxide 21 L (22-30) mmol/L Glucose 140 H (75-100) mg/dL Calcium 7.6 L (8.4-10.2) mg/dL Total Bilirubin 25.10 H (0.1-1.2) mg/dL AST 191 H (5-40) units/L Alkaline Phosphatase 175 H (35-129) units/L Total Protein 5.5 L (6.3-8.2) g/dL Albumin 1.9 L (3.9-5) g/dL Lipase (13-60) units/L Plasma/Serum Alcohol (0-0.07) % Crossmatch 01/04/21 01/04/21 01/04/21 Range/Units 08:55 08:55 08:55 RBC (3.65-5.03) M/mm3 Hgb (11.8-15.2) gm/dl Hct (35.5-45.6) % MCV (84-94) fl MCH (28-32) pg MCHC (32-34) % RDW (13.2-15.2) % Plt Count (140-440) K/mm3 Seg Neuts % (Manual) (40.0-70.0) % Lymphocytes # (Manual) (1.2-5.4) K/mm3 PT (12.2-14.9) Sec. INR (0.87-1.13) APTT (24.2-36.6) Sec. Sodium (137-145) mmol/L Potassium (3.6-5.0) mmol/L Chloride (98-107) mmol/L Carbon Dioxide (22-30) mmol/L Glucose (75-100) mg/dL Calcium (8.4-10.2) mg/dL Total Bilirubin (0.1-1.2) mg/dL AST (5-40) units/L Alkaline Phosphatase (35-129) units/L Total Protein (6.3-8.2) g/dL Albumin (3.9-5) g/dL Lipase 61 H (13-60) units/L Plasma/Serum Alcohol 0.13 H (0-0.07) % Crossmatch See Detail Assessment and Plan - Patient Problems (1) Septic shock Current Visit: Yes Status: Acute Plan to address problem: Sepsis protocol: CBC, CMP, chest x-ray, IV antibiotic therapy, IV fluid resuscitation therapy, monitor urine output every shift, IV pressor support, maintain mean arterial pressure greater than or equal to 65, monitor fluid balance, serial lactic acid level, The high probability of a clinically significant, sudden or life threatening det erioration of the [cardiac, renal, pulmonary, hematologic, GI] system(s) required my full and direct attention, intervention and personal management. The aggregate critical care time was [95] minutes. This time is in addition to time spent performing reported procedures but includes the following: [x] Data Review and interpretation [x] Patient assessment and monitoring of vital signs [x] Documentation [x] Medication orders and management (2) Upper GI bleed Current Visit: Yes Status: Acute Plan to address problem: GI team consulted, patient transfused packed red blood cells, FFP, patient in itiated on octreotide drip. Patient underwent emergent endoscopy as per GI team. (3) Acute hypoxemic respiratory failure Current Visit: Yes Status: Acute Plan to address problem: Patient intubated and ambulatory support, wean vent as tolerated, spontaneous breathing trial daily, sedation holiday, daily ABG. (4) Alcohol dependence Current Visit: Yes Status: Acute Plan to address problem: [facility] protocol: Thiamine, folic acid, multivitamin, banana bag. (5) Alcoholic cirrhosis Current Visit: Yes Status: Acute Qualifiers: Ascites presence: unspecified Qualified Code(s): K70.30 - Alcoholic cirrhosis of liver without ascites Plan to address problem: Supportive care, continue medical management. Alcohol cessation. (6) Advance care planning Current Visit: Yes Status: Acute Plan to address problem: Disease education conducted, care plan discussed, diagnosis discussed, prognosis discussed, patient is informed of poor prognosis. Patient and ac knowledges understanding and agreement with current care plan, +30 minutes. (7) Coagulopathy Current Visit: Yes Status: Acute Plan to address problem: Secondary to end-stage liver disease: Patient transfused FFP as well as platelets, coagulation profile (8) DVT prophylaxis Current Visit: Yes Status: Acute Plan to address problem: SCD to bilateral lower extremities while in bed, hold anticoagulation for now due to active GI bleed.
[2021-01-04] MEDS ORDERED: cefTRIAXone/NS 1 GM/50 ML 1 GM/50 ML BAG IV ONE (12:35)
[2021-01-04] MEDS ORDERED: HYDROmorphone 1 MG/1 ML INJ IV PRN ×2 (12:39)
[2021-01-04] MEDS ORDERED: ACETAMINOPHEN 325 MG TAB PO PRN (12:39)
[2021-01-04] MEDS ORDERED: MORPHINE 2 MG/1 ML INJ IV PRN (12:39)
[2021-01-04] MEDS ORDERED: SODIUM CHLORIDE 0.9% 1000 ML IV SOLN IV ONE (12:39)
[2021-01-04] MEDS ORDERED: IBUPROFEN 600 MG TAB PO PRN (12:39)
--- NOTE | 2021-01-04 12:54 | Gastroenterology Consultation ---
History of Present Illness - Reason for Consult Consult date: 01/04/21 GI Bleed Requesting physician: KIMBERLY MOULTON - History of Present Illness The patient is a 50 yo male with no past medical hx at [facility]. He is intubated on pressors/sedatives. Hx is per the chart and conversation with ER staff. He is a [facility] [facility] patient and Dr Infante (ER) has talked to the [place] MDs. He has a hx of "cryptogenic cirrhosis" but per the , he consumes large amount of EtOH every day. His blood EtOH level here is 0.13. He presented to the ER via EMS after vomiting blood at home; multiple bloody emesis occurred in the ER, and he was intubated for decreased mentation and airway support. He has labs consistent with cirrhosis, but his baseline is unknown. Past History Past Medical History: liver disease Past Surgical History: total knee replacement (Hardware removed 2020 2nd infection per Damion FORREST) Social history: alcohol abuse Family history: other (Unknown) Medications and Allergies Allergies Allergy/AdvReac Type Severity Reaction Status Date / Time Sulfa (Sulfonamide Allergy Unknown Verified 01/04/21 08:34 Antibiotics) Active Meds: Active Medications Acetaminophen (Acetaminophen 325 Mg Tab) 650 mg PO Q6H PRN PRN Reason: Pain, Mild (1-3) Famotidine (Famotidine 20 Mg/2 Ml Inj) 20 mg IV BID CORTNEY Fentanyl (Fentanyl 100 Mcg/2 Ml Inj) 50 mcg IV Q10MIN PRN PRN Reason: ANALGESIA Hydromorphone HCl (Hydromorphone 1 Mg/1 Ml Inj) 0.25 mg IV Q4H PRN PRN Reason: Pain, Moderate (4-6) Hydromorphone HCl (Hydromorphone 1 Mg/1 Ml Inj) 0.5 mg IV Q24H PRN PRN Reason: Pain , Severe (7-10) Hydrophilic Ointment (Lip Therapy Vaseline) 1 applic TP Q2HR PRN PRN Reason: Dry Lips Pantoprazole Sodium 80 mg/ (Sodium Chloride) 100 mls @ 10 mls/hr IV DIRECT CORTNEY Octreotide Acetate 500 mcg/ (Sodium Chloride) 101 mls @ 5.05 mls/hr IV TITR ONE; Protocol Stop: 01/05/21 04:20 Last Admin: 01/04/21 09:50 Dose: 25 mcg/hr, 5.05 mls/hr Documented by: Dopamine HCl/Dextrose (Intropin Drip 800 Mg/D5w 250 Ml) 800 mg in 250 mls @ 3.487 mls/hr IV TITR ONE; Protocol Stop: 01/07/21 09:47 Fentanyl Citrate (Fentanyl Drip Premix) 2,000 mcg in 100 mls @ 4.649 mls/hr IV TITR CORTNEY; Protocol Midazolam HCl 100 mg/ Sodium (Chloride) 100 mls @ 2 mls/hr IV TITR CORTNEY; Protocol Cefepime HCl (Cefepime/Ns 2 Gm/100 Ml) 2 gm in 100 mls @ 200 mls/hr IV Q8H CORTNEY; Protocol Ibuprofen (Ibuprofen 600 Mg Tab) 600 mg PO Q24H PRN PRN Reason: Pain, Mild (1-3) Midazolam HCl (Midazolam 2 Mg/2 Ml Inj) 2 mg IV Q10MIN PRN PRN Reason: Sedation Morphine Sulfate (Morphine 2 Mg/1 Ml Inj) 2 mg IV Q12H PRN PRN Reason: Pain, Moderate (4-6) Multi-Ingred Cream/Lotion/Oil/Oint (Mineral Oil/Petrolatum, White Ophth Oint 3.5 Gm) 1 applic OU Q4HR PRN PRN Reason: Dry Eye(s) Senna/Docusate Sodium (Sennosides/Docusate Sodium 8.6/50 Mg Tab) 1 tab FEEDTUBE BID CORTNEY Sodium Chloride (Sodium Chloride 0.9% 10 Ml Flush Syringe) 10 ml IV BID CORTNEY Sodium Chloride (Sodium Chloride 0.9% 10 Ml Flush Syringe) 10 ml IV PRN PRN PRN Reason: LINE FLUSH I HAVE REVIEWED AND RECONCILED MEDICATIONS Review of Systems - Review of Systems ROS unobtainable: due to endotracheal tube Exam - Constitutional Vital Signs: Temp Pulse Resp BP Pulse Ox 79 13 76/39 100 01/04/21 09:45 01/04/21 09:45 01/04/21 09:45 01/04/21 11:30 General appearance: other (Intubated/Max Pressors (Dopamine/Levophed)) - EENT Eyes: scleral icterus ENT: no thrush, other (Blood in Oral Cavity and NG tube) - Neck Neck: supple - Respiratory Respiratory effort: normal Respiratory: bilateral: CTA (ET tube/Vent) - Cardiovascular Heart Rate: 125 Rhythm: regular Heart Sounds: Present: S1 & S2. Absent: systolic murmur Extremities: no ischemia - Gastrointestinal General gastrointestinal: Present: soft, distended (Moderate ascites suspected) - Integumentary Integumentary: Present: clear, warm - Neurologic Neurological: other (Unable to assess secondary to intubation/acute EtOH/versed- fentanyl) - Labs CBC & Chem 7: 01/04/21 12:44 01/04/21 08:55 Lab Results: Laboratory Results - last 24 hr 01/04/21 01/04/21 01/04/21 08:55 08:55 08:55 WBC 4.6 RBC 2.15 L Hgb 8.4 L Hct 24.3 L MCV 113 H MCH 39 H MCHC 35 H RDW 24.9 H Plt Count 71 L [place] % (Auto) Musical Instrument Maker Add Manual Diff Complete Total Counted 100 Seg Neuts % (Manual) 76.0 H Band Neutrophils % 1.0 Lymphocytes % (Manual) 22.0 Monocytes % (Manual) 1.0 Nucleated RBC % Not Reportable Seg Neutrophils # Man 3.5 Band Neutrophils # 0.0 Lymphocytes # (Manual) 1.0 L Abs React Lymphs (Man) 0.0 Monocytes # (Manual) 0.0 Eosinophils # (Manual) 0.0 Basophils # (Manual) 0.0 Metamyelocytes # 0.0 Myelocytes # 0.0 Promyelocytes # 0.0 Blast Cells # 0.0 WBC Morphology Not Reportable Hypersegmented Neuts Not Reportable Hyposegmented Neuts Not Reportable Hypogranular Neuts Not Reportable Smudge Cells Not Reportable Toxic Granulation Not Reportable Toxic Vacuolation Not Reportable Dohle Bodies Not Reportable Pelger-Huet Anomaly Not Reportable Aneesh Rods Not Reportable Platelet Estimate Consistent w auto Clumped Platelets Not Reportable Plt Clumps, EDTA Not Reportable Large Platelets Not Reportable Giant Platelets Not Reportable Platelet Satelliting Not Reportable Plt Morphology Comment Not Reportable RBC Morphology Not Reportable Dimorphic RBCs Not Reportable Polychromasia Not Reportable Hypochromasia 1+ Poikilocytosis Not Reportable Anisocytosis 2+ Microcytosis Not Reportable Macrocytosis 1+ Spherocytes Not Reportable Pappenheimer Bodies Not Reportable Sickle Cells Not Reportable Target Cells Few Tear Drop Cells Not Reportable Ovalocytes Not Reportable Helmet Cells Not Reportable [place] Bodies Not Reportable Kim Rings Not Reportable Ana Cells Not Reportable Bite Cells Not Reportable Crenated Cell Not Reportable Elliptocytes Not Reportable Acanthocytes (Spur) Not Reportable Rouleaux Not Reportable Hemoglobin C Crystals Not Reportable Schistocytes Not Reportable Malaria parasites Not Reportable Jerrod Bodies Not Reportable Hem Pathologist Commnt No PT 33.7 H INR 3.31 H APTT 62.1 H* Sodium 134 L Potassium 3.4 L Chloride 97.7 L Carbon Dioxide 21 L Anion Gap 19 BUN 20 Creatinine 1.2 Estimated GFR > 60 BUN/Creatinine Ratio 17 Glucose 140 H Calcium 7.6 L Magnesium 2.10 Total Bilirubin 25.10 H AST 191 H ALT 37 Alkaline Phosphatase 175 H Total Protein 5.5 L Albumin 1.9 L Albumin/Globulin Ratio 0.5 Lipase Plasma/Serum Alcohol Blood Type Antibody Screen Crossmatch 01/04/21 01/04/21 01/04/21 08:55 08:55 08:55 WBC RBC Hgb Hct MCV MCH MCHC RDW Plt Count [place] % (Auto) Add Manual Diff Total Counted Seg Neuts % (Manual) Band Neutrophils % Lymphocytes % (Manual) Monocytes % (Manual) Nucleated RBC % Seg Neutrophils # Man Band Neutrophils # Lymphocytes # (Manual) Abs React Lymphs (Man) Monocytes # (Manual) Eosinophils # (Manual) Basophils # (Manual) Metamyelocytes # Myelocytes # Promyelocytes # Blast Cells # WBC Morphology Hypersegmented Neuts Hyposegmented Neuts Hypogranular Neuts Smudge Cells Toxic Granulation Toxic Vacuolation Dohle Bodies Pelger-Huet Anomaly Aneesh Rods Platelet Estimate Clumped Platelets Plt Clumps, EDTA Large Platelets Giant Platelets Platelet Satelliting Plt Morphology Comment RBC Morphology Dimorphic RBCs Polychromasia Hypochromasia Poikilocytosis Anisocytosis Microcytosis Macrocytosis Spherocytes Pappenheimer Bodies Sickle Cells Target Cells Tear Drop Cells Ovalocytes Helmet Cells [place] Bodies Kim Rings Ana Cells Bite Cells Crenated Cell Elliptocytes Acanthocytes (Spur) Rouleaux Hemoglobin C Crystals Schistocytes Malaria parasites Jerrod Bodies Hem Pathologist Commnt PT INR APTT Sodium Potassium Chloride Carbon Dioxide Anion Gap BUN Creatinine Estimated GFR BUN/Creatinine Ratio Glucose Calcium Magnesium Total Bilirubin AST ALT Alkaline Phosphatase Total Protein Albumin Albumin/Globulin Ratio Lipase 61 H Plasma/Serum Alcohol 0.13 H Blood Type A POSITIVE Antibody Screen Negative Crossmatch See Detail Assessment and Plan - Patient Problems (1) Alcoholic cirrhosis of liver with ascites Current Visit: Yes Status: Acute Plan to address problem: - Supportive care with with monitor for DTs, avoid anticoagulation, MVI (thiamine/folate). - Given shock, Bili > 10, acidosis, severe coagulopathy, patient is high risk for mortality. - Patient not a candidate for liver transplant evaluation. (2) GI bleed requiring more than 4 units of blood in 24 hours, ICU, or surgery Current Visit: Yes Status: Acute Plan to address problem: - Massive UGI bleed likely varices, but PUD also in the differential. - Continue transfusion, octreotide, protonix. - ICU monitoring. - EGD when available.
[2021-01-04] MEDS ORDERED: NORepinephrine/NS 4 MG-250 ML 4 MG/250 ML BAG IV ONE ×2 (12:56→15:41)
[2021-01-04 13:06] LABS: Hematocrit 30.2 % (35.5-45.6); Hemoglobin 9.6 gm/dl (11.8-15.2)
--- NOTE | 2021-01-04 13:15 | Electrocardiograph Report ---
Test Date: 2021-01-04 Test Time: 08:33:43 Pat Name: FLORIDA CHANDLER Department: Room: Gender: M Home Builder: CHITO : 1970 Requested By: ZAHRA MCLAUGHLIN Order Number: [id number] Reading MD: Sebas Estrada Measurements Intervals [place] Rate: 86 P: 66 ND: 166 QRS: 60 QRSD: 95 T: 60 QT: 439 QTc: 525 Interpretive Statements Sinus rhythm Prolonged QT interval No previous ECG available for comparison Electronically Signed On 01-04-2021 13:15:14 EDT by Sebas Estrada
[2021-01-04 13:50] LABS: ABG Base Excess -14.8 mmol/L (-2.0-3.0); ABG HCO3 11.6 mmol/L (20.0-26.0); ABG Methemoglobin 0.5 % (0.0-1.5); ABG Oxygen Saturation 99.4 % (95.0-99.0); ABG PH 7.218 pH Units (7.350-7.450); ABG PO2 256.5 mm Hg (80.0-90.0)
[2021-01-04] MEDS ORDERED: CEFEPIME/NS 2 GM/100 ML 2 GM/100 ML BAG IV SCH (14:00)
--- NOTE | 2021-01-04 14:00 | Post Operative Note ---
Pre-op diagnosis: GI Bleed Post-op diagnosis: other (Varices with hemorrhage) Findings: 1. Four columns of Grade III EV in the lower third of the esophagus - One column had active hemorrhage of blood - Band x 4 applied 2. Blood in fundus/not seen 3. Antrum/body WNL 4. Duodenum WNL Procedure: EGD with esophageal varix banding Anesthesia: other (Patient intubated/sedated in ICU; no additional meds) Surgeon: JOSE ANTONIO BUCK Estimated blood loss: none Pathology: none Specimen disposition: other (N/A) Condition: critical Disposition: ICU (Recs: 1. Avoid NG tube. 2. Continue octreotide/protonix/blood products. 3. Informed that due to liver failure on top of cirrhosis, prognosis very grave/likely terminal.)
[2021-01-04] MEDS: VASOPRESSIN 20 UNIT in SODIUM CHLORIDE 0.9% 100 ML IV SCH (14:23)
--- NOTE | 2021-01-04 14:23 | Consultation ---
History of Present Illness Consult date: 01/04/21 Requesting physician: KIMBERLY MOULTON Reason for consult: other (Resp failure on MVS, Alcohol abuse, GIB) Past History Past Medical History: other (See HPI) Past Surgical History: No surgical history, Other (Reviewed) Social history: , lives with family Family history: other (Unknown) Medications and Allergies Allergies Allergy/AdvReac Type Severity Reaction Status Date / Time Sulfa (Sulfonamide Allergy Unknown Verified 01/04/21 08:34 Antibiotics) Active Meds: Active Medications Acetaminophen (Acetaminophen 325 Mg Tab) 650 mg PO Q6H PRN PRN Reason: Pain, Mild (1-3) Fentanyl (Fentanyl 100 Mcg/2 Ml Inj) 50 mcg IV Q10MIN PRN PRN Reason: ANALGESIA Hydromorphone HCl (Hydromorphone 1 Mg/1 Ml Inj) 0.25 mg IV Q4H PRN PRN Reason: Pain, Moderate (4-6) Hydromorphone HCl (Hydromorphone 1 Mg/1 Ml Inj) 0.5 mg IV Q24H PRN PRN Reason: Pain , Severe (7-10) Hydrophilic Ointment (Lip Therapy Vaseline) 1 applic TP Q2HR PRN PRN Reason: Dry Lips Pantoprazole Sodium 80 mg/ (Sodium Chloride) 100 mls @ 10 mls/hr IV DIRECT CORTNEY Octreotide Acetate 500 mcg/ (Sodium Chloride) 101 mls @ 5.05 mls/hr IV TITR ONE; Protocol Stop: 01/05/21 04:20 Last Admin: 01/04/21 09:50 Dose: 25 mcg/hr, 5.05 mls/hr Documented by: Dopamine HCl/Dextrose (Intropin Drip 800 Mg/D5w 250 Ml) 800 mg in 250 mls @ 3.487 mls/hr IV TITR ONE; Protocol Stop: 01/07/21 09:47 Last Titration: 01/04/21 13:30 Dose: 20 mcg/kg/min, 34.87 mls/hr Documented by: Fentanyl Citrate (Fentanyl Drip Premix) 2,000 mcg in 100 mls @ 4.649 mls/hr IV TITR CORTNEY; Protocol Last Admin: 01/04/21 13:00 Dose: 1 mcg/kg/hr, 4.649 mls/hr Documented by: Midazolam HCl 100 mg/ Sodium (Chloride) 100 mls @ 2 mls/hr IV TITR CORTNEY; Protocol Last Admin: 01/04/21 13:00 Dose: 2 mg/hr, 2 mls/hr Documented by: Cefepime HCl (Cefepime/Ns 2 Gm/100 Ml) 2 gm in 100 mls @ 200 mls/hr IV Q8H CORTNEY; Protocol Vasopressin 20 unit/ Sodium (Chloride) 101 mls @ 9.09 mls/hr IV TITR CORTNEY; Protocol Folic Acid 1 mg/ Sodium (Chloride) 50.2 mls @ 200.8 mls/hr IV QDAY CORTNYE Thiamine HCl 100 mg/ Sodium (Chloride) 51 mls @ 100 mls/hr IV ONCE ONE Stop: 01/04/21 16:30 Ibuprofen (Ibuprofen 600 Mg Tab) 600 mg PO Q24H PRN PRN Reason: Pain, Mild (1-3) Midazolam HCl (Midazolam 2 Mg/2 Ml Inj) 2 mg IV Q10MIN PRN PRN Reason: Sedation Morphine Sulfate (Morphine 2 Mg/1 Ml Inj) 2 mg IV Q12H PRN PRN Reason: Pain, Moderate (4-6) Multi-Ingred Cream/Lotion/Oil/Oint (Mineral Oil/Petrolatum, White Ophth Oint 3.5 Gm) 1 applic OU Q4HR PRN PRN Reason: Dry Eye(s) Senna/Docusate Sodium (Sennosides/Docusate Sodium 8.6/50 Mg Tab) 1 tab FEEDTUBE BID CORTNEY Sodium Chloride (Sodium Chloride 0.9% 10 Ml Flush Syringe) 10 ml IV BID CORTNEY Sodium Chloride (Sodium Chloride 0.9% 10 Ml Flush Syringe) 10 ml IV PRN PRN PRN Reason: LINE FLUSH Physical Examination Vital signs: Vital Signs Pulse Resp BP Pulse Ox 81 20 60/40 100 01/04/21 08:30 01/04/21 08:30 01/04/21 08:30 01/04/21 08:30 Results - Laboratory Findings CBC and BMP: 01/04/21 12:44 01/04/21 08:55 ABG ABG pH 7.218 pH Units (7.350-7.450) L 01/04/21 13:22 ABG pCO2 29.0 mm Hg 01/04/21 13:22 ABG pO2 256.5 mm Hg (80.0-90.0) H 01/04/21 13:22 ABG O2 Saturation 99.4 % (95.0-99.0) H 01/04/21 13:22 PT/INR, D-dimer PT 33.7 Sec. (12.2-14.9) H 01/04/21 08:55 INR 3.31 (0.87-1.13) H 01/04/21 08:55 Abnormal lab findings: Abnormal Labs 01/04/21 01/04/21 01/04/21 08:55 08:55 08:55 RBC 2.15 L Hgb 8.4 L Hct 24.3 L MCV 113 H MCH 39 H MCHC 35 H RDW 24.9 H Plt Count 71 L Seg Neuts % (Manual) 76.0 H Lymphocytes # (Manual) 1.0 L PT 33.7 H INR 3.31 H APTT 62.1 H* ABG pH ABG pO2 ABG HCO3 ABG O2 Saturation ABG Base Excess ABG Hemoglobin Sodium 134 L Potassium 3.4 L Chloride 97.7 L Carbon Dioxide 21 L Glucose 140 H Calcium 7.6 L Total Bilirubin 25.10 H AST 191 H Alkaline Phosphatase 175 H Total Protein 5.5 L Albumin 1.9 L Lipase Plasma/Serum Alcohol Crossmatch 01/04/21 01/04/21 01/04/21 08:55 08:55 08:55 RBC Hgb Hct MCV MCH MCHC RDW Plt Count Seg Neuts % (Manual) Lymphocytes # (Manual) PT INR APTT ABG pH ABG pO2 ABG HCO3 ABG O2 Saturation ABG Base Excess ABG Hemoglobin Sodium Potassium Chloride Carbon Dioxide Glucose Calcium Total Bilirubin AST Alkaline Phosphatase Total Protein Albumin Lipase 61 H Plasma/Serum Alcohol 0.13 H Crossmatch See Detail 01/04/21 01/04/21 12:44 13:22 RBC Hgb 9.6 L Hct 30.2 L MCV MCH MCHC RDW Plt Count Seg Neuts % (Manual) Lymphocytes # (Manual) PT INR APTT ABG pH 7.218 L ABG pO2 256.5 H ABG HCO3 11.6 L ABG O2 Saturation 99.4 H ABG Base Excess -14.8 L ABG Hemoglobin 6.5 L Sodium Potassium Chloride Carbon Dioxide Glucose Calcium Total Bilirubin AST Alkaline Phosphatase Total Protein Albumin Lipase Plasma/Serum Alcohol Crossmatch
--- NOTE | 2021-01-04 14:29 | Operative Report ---
DATE OF SURGERY: 01/04/2021 PROCEDURE PERFORMED: Esophagogastroduodenoscopy with variceal banding. PREOPERATIVE DIAGNOSIS: Upper gastrointestinal hemorrhage. POSTOPERATIVE DIAGNOSIS: Esophageal varices with active bleeding. ENDOSCOPIST: Alex Leal MD INSTRUMENT: The Olympus video endoscope. MEDICATIONS: The patient was intubated and sedated per the Intensive Care Unit per protocol; no additional medications were given during this procedure. COMPLICATIONS: No apparent complications. ESTIMATED BLOOD LOSS: None from the procedure, but the patient was in the midst of an upper GI bleed. SPECIMENS: None. IMPLANTS: Endoscopic variceal band x 4, MR renae. ASSISTANTS: None. CONDITION AT COMPLETION: Critical. TECHNIQUE: The patient's was informed of the risks and benefits of the procedure and she signed the informed consent to proceed. The patient was unable to provide consent due to intubation and sedation. After consent was obtained, he was placed in the supine position. The above sedative medications were given. His his vital signs remained critical throughout the procedure. The instrument was advanced from the mouth to the second portion of the duodenum under direct visualization. At that point, the bowel was insufflated and the endoscope was slowly withdrawn. The distal stomach and duodenum were within normal limits and there was no evidence of gastric varices. There were 4 columns of grade 3 esophageal varices in the lower third, one of which had active hemorrhage; the endoscope was withdrawn and the variceal band ligator was attached. The endoscope was readvanced into the distal esophagus and bands were ligated across the varices at the gastroesophageal junction 4 times. The post-endoscopic appearance was good. The endoscope was then removed from the patient. FINDINGS: 1. Four columns of grade 3 esophageal varices in the lower third of the esophagus. A. One column had active hemorrhage of blood near the GE junction. B. Banding x 4 was performed in a clockwise fashion including the varix with active hemorrhage. C. There was still mild oozing of blood after the procedure was complete. 2. Blood clot in the fundus and this area was not visualized. 3. The antrum and body were within normal limits with no evidence of gastric varices nor peptic ulcer disease. 4. Duodenum was within normal limits. RECOMMENDATIONS: 1. Avoid nasogastric tube at present. 2. Continue octreotide, Protonix and blood product transfusions. 3. I have informed the that due to the liver failure on top of cirrhosis, the prognosis is extremely grave and likely terminal. TID: [id number] RECEIPT: [id number] NITIN/MAXIME
[2021-01-04] MEDS ORDERED: FOLIC ACID 1 MG in SODIUM CHLORIDE 0.9% 50 ML IV SCH (15:20)
[2021-01-04] MEDS ORDERED: cefTRIAXone/NS 1 GM/50 ML 0 GM/0 ML BAG IV ONE (15:41)
[2021-01-04] MEDS ORDERED: SODIUM BICARBONATE 150 MEQ in DEXTROSE 5% IN WATER 1,000 ML IV SCH (16:00)
[2021-01-04] MEDS ORDERED: THIAMINE 100 MG in SODIUM CHLORIDE 0.9% 50 ML IV ONE (16:00)
[2021-01-04] MEDS: NORepinephrine/NS 4 MG-250 ML 4 MG/250 ML BAG IV SCH ×3 (18:30→23:33)
[2021-01-04] MEDS ORDERED: SODIUM CHLORIDE 0.9% 500 ML 500 ML IV SCH (20:52)
[2021-01-04] MEDS ORDERED: SENNOSIDES/DOCUSATE SODIUM 8.6/50 MG TAB FEEDTUBE SCH (22:00)
[2021-01-04] MEDS ORDERED: FAMOTIDINE 20 MG/2 ML INJ IV SCH (22:00)
[2021-01-04] MEDS ORDERED: ACETAMINOPHEN 325 MG RECT SUPP PR PRN (22:54)
[2021-01-05] MEDS ORDERED: SODIUM CHLORIDE 0.9% 500 ML 500 ML IV ONE (00:26)
[2021-01-05] MEDS: VASOPRESSIN 20 UNIT in SODIUM CHLORIDE 0.9% 100 ML IV SCH (01:05)
[2021-01-05 01:45] VITALS: BP 53/22
[2021-01-05 02:52] LABS: Albumin 1.5 g/dL (3.9-5); Calcium 6.6 mg/dL (8.4-10.2)
[2021-01-05 03:14] LABS: Hematocrit 20.8 % (35.5-45.6); Hemoglobin 6.3 gm/dl (11.8-15.2); Mean Corpuscular HGB Conc 30 % (32-34); Red Blood Count 1.75 M/mm3 (3.65-5.03)
[2021-01-05 03:17] LABS: Mean Corpuscular Volume 119 fl (84-94); Red Cell Distribution Width 35.9 % (13.2-15.2)
--- NOTE | 2021-01-05 04:02 | Event Note ---
Date: 01/05/21 EDEN REINA called on 50-year-old -[place] male with known history of liver cirrhosis, alcohol dependence and admitted with EtOH withdrawal syndrome. He had EGD with esophageal varices banding yesterday. He has also been on 3 pressors and sodium bicarb drip. Resuscitative measures were commenced according to ACLS protocol. However, all resuscitative measures proved futile. Upon exam there is no response to verbal commands or deep sternal rub. Pupils were fixed and dilated. Patient is severely jaundiced Chest: No breath sounds Cardiovascular exam: No heart sounds and no peripheral pulses Abdomen: Slightly distended Extremities: Cold and clammy Central nervous system: No reflexes Patient pronounced at 2:54 AM on January 05, 2021. was by the bedside.
[2021-01-05 04:36] LABS: Total Cells Counted 100
[2021-01-05 04:38] LABS: Anisocytosis 2+; Macrocytosis 1+; Target Cells 1+
[2021-01-05 04:40] LABS: Platelet Count 76 K/mm3 (140-440); Platelet Estimate Consistent w Auto
== END 2021-01-05 02:54 | DRG 871 ==
LOC: ED 08:12 → CC1 12:39 → UNDOADMIN 12:39 → CC1 01-05 02:54 → ED 01-05 04:53
PROVIDERS: ADMIT Internal Medicine; ATTEND Internal Medicine
PROC: 06L38CZ Occlusion of Esophageal Vein with Extraluminal Device, Via Natural or Artificial Opening Endoscopic (ICD-10-PCS; principal; 2021-01-04)
PROC: 30233K1 Transfusion of Nonautologous Frozen Plasma into Peripheral Vein, Percutaneous Approach (ICD-10-PCS; 2021-01-04)
PROC: 30233N1 Transfusion of Nonautologous Red Blood Cells into Peripheral Vein, Percutaneous Approach (ICD-10-PCS; 2021-01-04)
PROC: 30233R1 Transfusion of Nonautologous Platelets into Peripheral Vein, Percutaneous Approach (ICD-10-PCS; 2021-01-04)
PROC: 0BH17EZ Insertion of Endotracheal Airway into Trachea, Via Natural or Artificial Opening (ICD-10-PCS; 2021-01-04)
PROC: 5A1935Z Respiratory Ventilation, Less than 24 Consecutive Hours (ICD-10-PCS; 2021-01-04)
PROC: 02HV33Z Insertion of Infusion Device into Superior Vena Cava, Percutaneous Approach (ICD-10-PCS; 2021-01-04)
DX: A41.9 Sepsis, unspecified organism (principal); J96.01 Acute respiratory failure with hypoxia; I85.11 Secondary esophageal varices with bleeding; R65.21 Severe sepsis with septic shock; D68.9 Coagulation defect, unspecified; K70.31 Alcoholic cirrhosis of liver with ascites; Z88.2 Allergy status to sulfonamides; I95.9 Hypotension, unspecified; D64.9 Anemia, unspecified; D69.6 Thrombocytopenia, unspecified; Y90.9 Presence of alcohol in blood, level not specified; F10.20 Alcohol dependence, uncomplicated
CPT/HCPCS: 36415; 71045; 80053; 80320; 82140; 82803; 82962; 83690; 83735; 85007; 85014; 85018; 85025; 85610; 85730; 86706; 86803; 86850; 86900; 86901; 86920; 87040; 93005; 94002; 99292; G0378; C9113; G0480; J0171; J0692; J0696; J1265; J2250; J2354; J2405; J3010; J3411; J7030; J7040; J7070; P9016; P9017; P9035